=== PATIENT | female | born 1990 | race Caucasian/White ===

== ENCOUNTER 2018-05-27 11:22 | Emergency (ER) | payer BC ==
[~2018-05-27] VITALS: Wt 64.2 kg
[~2018-05-27 11:22] MED LIST: BACITUD TOP; CEPH-443 PO; NITR-58 PO
[2018-05-27 11:28] VITALS: BP 136/76; PULSE 91; RESP 18
--- NOTE | 2018-05-27 13:40 | ERD ---
ER Documentation Chief Complaint Chief Complaint BACK PAIN HPI 27-year-old female, presents to the emergency department, complaining of bilateral lower back pain, associated with urinary frequency and a strong urine smell. The symptoms started approximately 1 week ago, she is also complaining of white, non-malodorous vaginal discharge. No nausea, no vomiting, no abdominal pain, no fever or chills. ROS All systems reviewed and are negative except as per history of present illness. Medications Home Meds Active Scripts Fluconazole* (Diflucan*) 150 Mg Tablet, 150 MG PO ONCE, #1 TAB Prov:JANY ZHOU MD 05/27/18 Ciprofloxacin Hcl* (Ciprofloxacin Hcl*) 250 Mg Tablet, 250 MG PO BID for 3 Days, #6 TAB Prov:JANY ZHOU MD 05/27/18 Nitrofurantoin Monohyd Macrocr* (Macrobid*) 100 Mg Capsr, 100 MG PO BID for 14 Days, CAP Prov:ROSALIA CHAVEZ MD 05/14/16 Bacitracin* (Bacitracin Oint (UD)*) 1 Applic Oint, 1 APPLIC TOP ONCE for 7 Days, PKT APPLY TO Prov:TON LAFLEUR 03/11/15 Cephalexin* (Keflex*) 500 Mg Capsule, 500 MG PO QID for 5 Days, CAP Prov:TON LAFLEUR 03/11/15 Nitrofurantoin Monohyd Macrocr* (Macrobid*) 100 Mg Capsr, 100 MG PO BID for 5 Days, CAP Prov:BENSON SARKAR 11/18/14 Allergies Allergies: Coded Allergies: No Known Allergy (Unverified , 05/14/16) PMhx/Soc History of Surgery: No Anesthesia Reaction: No Hx Neurological Disorder: No Hx Respiratory Disorders: No Hx Cardiac Disorders: No Hx Psychiatric Problems: No Hx Miscellaneous Medical Probl: No Hx Alcohol Use: Yes (occasional) Hx Substance Use: Yes (marijuana) Hx Tobacco Use: Yes Smoking Status: Current some day smoker FmHx Family History: No diabetes, No coronary disease Physical Exam Vitals Vital Signs Date Temp Pulse Resp B/P (MAP) Pulse Ox O2 O2 Flow FiO2 Time Delivery Rate 05/27/18 97.6 91 18 136/76 99 11:28 (96) Physical Exam Const: No acute distress Head: Atraumatic Eyes: Normal Conjunctiva ENT: Normal External Ears, Nose and Mouth. Neck: Full range of motion. No meningismus. Resp: Clear to auscultation bilaterally Cardio: Regular rate and rhythm, no murmurs Abd: Soft, non tender, non distended. Normal bowel sounds Pelvic: Normal external genitalia, no cervical motion tenderness, white non- malodorous vaginal discharge. Skin: No petechiae or rashes Back: No midline or flank tenderness Ext: No cyanosis, or edema Neur: Awake and alert Psych: Normal Mood and Affect Results 24 hrs Laboratory Tests Test 05/27/18 13:44 05/27/18 13:46 Bedside Urine pH (LAB) 5.5 Bedside Urine Protein (LAB) Negative Bedside Urine Glucose (UA) Negative Bedside Urine Ketones (LAB) Negative Bedside Urine Blood 1+ Bedside Urine Nitrite (LAB) Negative Bedside Urine Leukocyte Esterase (L Trace POC Beta HCG, Qualitative NEGATIVE Procedures/MDM Differential diagnosis include but not limited to: UTI, colitis, gastroenteritis, kidney stones, irritable bowel syndrome, inflammatory bowel syndrome, malabsorption syndrome, cholelithiasis, food intolerance, medication side effect, pancreatitis, diverticulitis, bowel obstruction. Low suspicion for acute abdomen Physical examination and clinical presentation consistent most likely with urinary tract infection and yeast infection. During the ED course the patient remained stable, no new complaints. Results and clinical impression discussed with patient who agrees with management. The patient is stable to be treated outpatient and will be discharged home, some side effects of prescribed medications (headache, rash, nausea, vomiting, diarrhea, drowsiness, habituation, bleeding, hypertension, interactions with other medications) were reviewed. The patient was instructed to follow up with the primary care provider in the next 48h. If symptoms persist, worsen or new symptoms develop, then patient should return to the ED immediately. Instructions explained and given directly by me to the patient with acknowledgment and demonstrated understanding. Disclaimer: Inadvertent spelling and grammatical errors are likely due to EHR/dictation software use and do not reflect on the overall quality of patient care. Also, please note that the electronic time recorded on this note does not necessarily reflect the actual time of the patient encounter. Departure Diagnosis: Primary Impression: Acute cystitis Additional Impression: Maggie infection Condition: Stable Additional Instructions: Thank you very much for allowing us to participate in your care. Your health and safety is our top priority at [facility]. Call your primary care doctor TOMORROW for an appointment during the next 2-4 days and bring all the information and medications prescribed. Have prescriptions filled and follow precisely the directions on the label. If the symptoms get worse and your provider is unavailable, return to the Emergency Department immediately. JANY ZHOU MD May 27, 2018 13:40
[2018-05-27] MEDS ORDERED: CIPR-193 PO (14:18)
[2018-05-27] MEDS ORDERED: FLUC150T PO (14:18)
== END 2018-05-27 16:13 | disposition home or self-care (01) ==
LOC: FTE 11:22
DX: N30.00 Acute cystitis without hematuria (principal); F17.210 Nicotine dependence, cigarettes, uncomplicated; B37.9 Candidiasis, unspecified
CPT/HCPCS: 81003; 81025; Z7502; 99284

== ENCOUNTER 2018-07-10 01:38 | Emergency (ER) | payer BC ==
[~2018-07-10] VITALS: Ht 170.2 cm; Wt 65.5 kg
[~2018-07-10 01:38] MED LIST changes: +CIPR-193 PO; +FLUC150T PO
[2018-07-10 01:43] VITALS: BP 138/75; PULSE 89; RESP 18; Ht 170.2 cm; Wt 65.5 kg
--- NOTE | 2018-07-10 03:06 | ERD ---
ER Documentation Chief Complaint Chief Complaint ANXIETY HPI This is a 27-year-old female who presents here in the emergency department with multiple complaints including chest discomfort, stated that she felt like she has a fever at home. Insist to be checked for influenza. LMP: Stated that she is on it. Denies headache, head injury, loss of consciousness, dizziness, neck pain, neck stiffness, throat pain, difficulty swallowing, difficulty breathing lying flat, shoulder pain, chest pain, back pain, abdominal pain, nausea, vomiting, constipation, diarrhea, urinary symptoms, or possibility being , loss of bowel and bladder control, trauma, injury, falls, difficulty walking due to pain, numbness or tingling sensation, calf pain, recent travel, recent major surgery in the last 3 weeks, calf pain, recent long travel, recent exposure to any illness, recent antibiotic use in the last 3 months, fever, chills, seizures. Past medical history: Denies. Surgical history: Denies. Social: Denies smoking, use of illegal drugs. Occasionally drinks alcoholic beverages. ROS All systems reviewed and are negative except as per history of present illness. Medications Home Meds Active Scripts Ibuprofen* (Motrin*) 600 Mg Tab, 600 MG PO Q6H PRN for PAIN AND OR ELEVATED TEMP, #30 TAB Prov:DORA LOUIS 07/10/18 Hydroxyzine Hcl* (Hydroxyzine Hcl*) 50 Mg Tablet, 50 MG PO Q6H PRN for ANXIETY, #30 TAB Prov:DORA LOUIS 07/10/18 Fluconazole* (Diflucan*) 150 Mg Tablet, 150 MG PO ONCE, #1 TAB Prov:JANY ZHOU MD 05/27/18 Ciprofloxacin Hcl* (Ciprofloxacin Hcl*) 250 Mg Tablet, 250 MG PO BID for 3 Days, #6 TAB Prov:JANY ZHOU MD 05/27/18 Nitrofurantoin Monohyd Macrocr* (Macrobid*) 100 Mg Capsr, 100 MG PO BID for 14 Days, CAP Prov:ROSALIA CHAVEZ MD 05/14/16 Bacitracin* (Bacitracin Oint (UD)*) 1 Applic Oint, 1 APPLIC TOP ONCE for 7 Days, PKT APPLY TO Prov:TON LAFLEUR 03/11/15 Cephalexin* (Keflex*) 500 Mg Capsule, 500 MG PO QID for 5 Days, CAP Prov:TON LAFLEUR 03/11/15 Nitrofurantoin Monohyd Macrocr* (Macrobid*) 100 Mg Capsr, 100 MG PO BID for 5 Days, CAP Prov:BENSON SARKARMadhav 11/18/14 Allergies Allergies: Coded Allergies: No Known Allergy (Unverified , 05/14/16) PMhx/Soc Medical and Surgical Hx: pt denies Medical Hx, pt denies Surgical Hx History of Surgery: No Anesthesia Reaction: No Hx Neurological Disorder: No Hx Respiratory Disorders: No Hx Cardiac Disorders: No Hx Psychiatric Problems: No Hx Miscellaneous Medical Probl: No Hx Alcohol Use: Yes (OCCASIONAL) Hx Substance Use: No Hx Tobacco Use: No Smoking Status: Never smoker Physical Exam Vitals Physical Exam Const: No acute distress Head: Atraumatic Eyes: Normal Conjunctiva ENT: Normal External Ears, Nose and Mouth. Neck: Full range of motion. No meningismus. Resp: Clear to auscultation bilaterally Cardio: Regular rate and rhythm, no murmurs Abd: Soft, non tender, non distended. Normal bowel sounds Skin: No petechiae or rashes Back: No midline or flank tenderness Ext: No cyanosis, or edema Neur: Awake and alert Psych: Normal Mood and Affect Results 24 hrs Laboratory Tests Test 07/10/18 03:13 07/10/18 03:22 Urine Color STRAW Urine Clarity CLEAR Urine pH 6.0 Urine Specific [place] 1.008 Urine Ketones NEGATIVE mg/dL Urine Nitrite NEGATIVE mg/dL Urine Bilirubin NEGATIVE mg/dL Urine Urobilinogen NEGATIVE mg/dL Urine Leukocyte Esterase TRACE Jayne/ul Urine Microscopic RBC 137 /HPF Urine Microscopic WBC 5 /HPF Urine Squamous Epithelial Cells FEW /HPF Urine Bacteria FEW /HPF Urine Hemoglobin 3+ mg/dL Urine Glucose NEGATIVE mg/dL Urine Total Protein NEGATIVE mg/dl POC Beta HCG, Qualitative NEGATIVE Current Medications Medications Dose Sig/Mike Start Time Status Last (Trade) Ordered Route PRN Stop Time Admin Dose Reason Admin Aspirin 325 mg ONCE ONCE 07/10/18 DC (Aspirin) PO 04:30 07/10/18 04:31 Lorazepam 1 mg ONCE ONCE 07/10/18 DC (Ativan) PO 04:30 07/10/18 04:31 Procedures/MDM Diagnostic tests: EKG: Sinus rhythm with premature atrial complexes. Ventricular rate of 67 bpm. No STEMI. Read by supervising physician. Influenza a and B: Negative for influenza A. Negative for influenza B. POC urine : Negative. Urinalysis: Reviewed. Treatment: Aspirin. Ativan. Re-evaluation: Denies pain. Denies visual/auditory hallucinations/delusions. Not suicidal. not homicidal. Has the capacity to decide for herself. Has good s upport system at home. Differential diagnosis I have low suspicion for NC, suicidal ideation, 51/50. Final diagnosis: Anxiety. Flulike symptoms. Prescription: Motrin. Hydroxyzine. Follow-up with PCP in the next 24-48 hours. Come back here in the emergency department for any new symptoms or any worsening symptoms. All questions and concerns were answered. Patient and family members verbalized understanding and agreed with plan of care. Hemodynamically stable on discharge. Departure Diagnosis: Primary Impression: Anxiety attack Additional Impression: Viral syndrome Condition: Stable Additional Instructions: Follow-up with PCP in the next 24-48 hours. Come back here in the emergency department for any new symptoms or any worsening symptoms. DORA LOUIS Jul 10, 2018 03:06
[2018-07-10] MEDS ORDERED: HYDR50TA15 PO (04:23)
[2018-07-10] MEDS ORDERED: IBUP-1542 PO (04:24)
[2018-07-10] MEDS ORDERED: ASPIRIN 325 MG TAB PO ONE (04:30)
[2018-07-10] MEDS ORDERED: LORAZEPAM 1 MG TAB PO ONE (04:30)
== END 2018-07-10 04:31 | disposition home or self-care (01) ==
LOC: FTE 01:38
DX: F41.1 Generalized anxiety disorder (principal); B34.9 Viral infection, unspecified; R07.89 Other chest pain
CPT/HCPCS: 81001; 81025; 87400; 93005; Z7502

== ENCOUNTER 2019-01-18 14:36 | Emergency (ER) | payer BC ==
[~2019-01-18] VITALS: Ht 170.2 cm; Wt 63.6 kg
[~2019-01-18 14:36] MED LIST changes: +HYDR50TA15 PO; +IBUP-1542 PO
[2019-01-18 14:51] VITALS: BP 137/76; PULSE 90; RESP 16; Ht 170.2 cm; Wt 63.6 kg
[2019-01-18] MEDS ORDERED: IBUPROFEN 600 MG TAB PO ONE (17:30)
== END 2019-01-18 17:49 | disposition home or self-care (01) ==
LOC: FTE 14:36
DX: N39.0 Urinary tract infection, site not specified (principal)
CPT/HCPCS: 81003; 81025; Z7502; Z7610; 99283